=== PATIENT | male | born 1975 | race Caucasian/White ===

== ENCOUNTER 2021-01-31 19:54 | Emergency (ER) | payer OTHER ==
[2021-01-31] MEDS ORDERED: Morphine 4 MG/ML VIAL IVPUSH ONE (20:47)
[2021-01-31] MEDS ORDERED: HYDROmorphone 1 MG/ML Syringe IVPUSH STA ×2 (21:05→22:26)
[2021-01-31 21:23] LABS: BLOOD UREA NITROGEN,BUN 17 mg/dL (7.0-18.0); CARBON DIOXIDE,CO2 24.5 mmol/L (21.0-32.0); CHLORIDE,CL 104 mmol/L (98-107); GLUCOSE RANDOM 110 mg/dL (74-106); POTASSIUM,K 3.9 mmol/L (3.5-5.1); SODIUM,NA 140 mmol/L (136-148)
[2021-01-31] MEDS ORDERED: Iopamidol 755 MG/ML 500 ML Multipack Bottle IVPUSH STA (21:56)
--- NOTE | 2021-01-31 22:40 | CT ---
INDICATION: Evaluate for arterial occlusion. Swelling and pain of the left lower extremity. History of clots. Pain. COMPARISON: None available TECHNIQUE: CT angiography of the left pelvis and the left lower extremity was performed with the uneventful intravenous administration of 120 cc of Isovue 370 while spiral acquisition was performed from the superior iliac crest through the foot. 3 in 10 mm thick axial and 2 mm thick sagittal and coronal sections are obtained. Please note that all CT scans at this facility use dose modulation, iterative reconstruction, and/or weight-based dosing when appropriate to reduce radiation dose to as low as reasonably achievable. FINDINGS: : In the visualized left pelvis, the loops of small bowel and colon in are normal in appearance. The prostate is prominently enlarged and is otherwise normal in appearance. The urinary bladder is normal in appearance. There is no sign of pelvic or inguinal mass or adenopathy. There is no sign of free fluid or free air in the pelvis. The osseous structures are normal in appearance for the patient`s age. The visualized distal abdominal aorta is widely patent there is mild calcific plaque in the common iliac arteries bilaterally with no stenosis. The left external iliac and femoral arteries are widely patent. The left superficial femoral and profunda femoris are widely patent to the knee. 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 There is no sign of extravasation of contrast to suggest a bleed. There is no sign of hematoma around the aneurysm. The popliteal artery itself is widely patent. There is minimal calcification of the tibial-peroneal trunk, with no stenosis. There is excellent triple vessel runoff to the ankle, with the anterior and posterior tibial arteries both crossing the ankle. IMPRESSION: Widely patent arterial supply through the left lower extremity, with no sign of any stenosis or occlusion. Excellent triple vessel runoff to the ankle. 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 Please note that all CT scans at this facility use dose modulation, iterative reconstruction, and/or weight-based dosing when appropriate to reduce radiation dose to as low as reasonably achievable. Dictated by Vasyl Dowell MD @ 01/31/2021 10:39:01 PM (Electronically Signed)
[2021-02-01] MEDS ORDERED: fentaNYL 50 MCG/ML SDV IVPUSH ONE (00:05)
[2021-02-01] MEDS ORDERED: Enoxaparin 150 MG/1 ML Syringe SUBCUT ONE (00:06)
--- NOTE | 2021-02-01 00:52 | EDM.PDOC ---
ED HPI GENERAL MEDICAL PROBLEM - General Chief Complaint: Lower Extremity Injury/Pain Stated Complaint: POSSIBLE BLOOD CLOT IN LT KNEE Time Seen by Provider: 01/31/21 20:10 - History of Present Illness INITIAL COMMENTS - FREE TEXT/NARRATIVE: CHIEF COMPLAINT(S): "Left leg." HISTORY OF PRESENT ILLNESS: This is a 45-year-old and with a past medical history of reported clots in leg status post surgical intervention remotely who is supposed to be on warfarin who comes to the emergency department with a chief complaint of "left leg." The patient states that he is experiencing pain in his left leg. He rates his pain is 8-9 out of 10 and describes it as throbbing. He states that he cannot feel hot or cold in his left foot and is concerned that he may have a clot in that leg. He states that he has had some increased swelling and pain in that leg. This all began a couple of days ago. There is no radiation of the pain. The pain is not as exacerbated by moving it. There are no relieving factors. He states that he is supposed to be on warfarin however just moved here from [place] and has been unable to obtain his warfarin up until 2 days ago. He states that he is recently restarted the warfarin as described by his physician. He denies any other symptoms. REVIEW OF SYSTEMS: Constitutional: Denies fever, chills. Eyes: Denies eye pain Ears, Nose, Mouth, & Throat: Denies earache Cardiovascular: Denies chest pain Respiratory: Denies shortness of breath Gastrointestinal: Denies Nausea, vomiting, diarrhea, hematochezia. Genitourinary: Denies hematuria Skin:Denies a rash MSK: Positive for left leg pain and swelling Neurological: Positive for decreased sensation of hot and cold in left foot. Denies weakness Psychiatric: Denies depression PAST MEDICAL HISTORY: As per history of present illness and as reviewed below otherwise noncontributory. SURGICAL HISTORY: As per history of present illness and as reviewed below otherwise noncontributory. SOCIAL HISTORY: As per history of present illness and as reviewed below otherwise noncontributory. FAMILY HISTORY: As per history of present illness and as reviewed below otherwise noncontributory. EXAMINATION OF ORGAN SYSTEMS/BODY AREAS: Constitutional: Blood pressure was 139/81, heart rate 89, respiratory rate 16 with an oxygen saturation of 95% on room air. Temperature 35.9 General: obese gentleman who does not appear to be in acute distress Psychiatric: Appropriate mood and affect. Eyes: No scleral icterus or conjunctival erythema ENMT: Moist mucous membranes. No pharyngeal erythema Cardiovascular: Regular, rate, and rhythm. No gallops, murmurs, or rubs. Bilateral upper extremity pulses symmetric and intact. Left lower extremity does appear to be more swollen than the right. There is no evidence of any pitting edema. No JVD. Bilateral DP and PT pulses are symmetric and intact. Capillary refill of distal lower extremities is less than 1 second. Respiratory: Lungs clear to auscultation bilaterally. No wheezes, rales, or rhonchi. Gastrointestinal: Soft, non-tender, non-distended. Normoactive bowel sounds Genitourinary: No suprapubic tenderness Musculoskeletal: Normal range of motion. Skin: Chronic skin changes of his lower extremities likely secondary to peripheral vascular disease. Neurological: Alert, GCS 15 distal sensation is intact MEDICAL DECISION MAKING AND COURSE IN THE ED WITH INTERPRETATION/REVIEW OF DIAGNOSTIC STUDIES: This is a 45-year-old man with a past medical history of clots in his lower extremities who has missed 2 weeks of warfarin dosing who comes to the emergency department with left lower extremity swelling, pain with some asymmetry of left greater than right lower extremity swelling. At this time DVT is on the differential however given his history I am also concerned about the possibility of arterial injury. Obtain a CT of the lower extremity to evaluate for arterial occlusion. The patient does have DP pulses at this time. We will provide the patient with 0.5 mg of Dilaudid for pain relief. Given the patient is on warfarin we will obtain screening labs and an INR. It is the evening during my evaluation and there is no emergent senior electronics technician available to obtain a duplex ultrasonography therefore I will perform a bedside ultrasound to evaluate for deep venous thrombosis. I did discuss that the patient will need a formal duplex and that we could write him a prescription for that. He was amenable to this plan. DDx: DVT, arterial occlusion Laboratory: CBC is unremarkable except for thrombocytopenia with a platelet count of 135. INR is subtherapeutic at 1.7. BMP is unremarkable. The radiological images were viewed by myself along with reading the report from the radiologist. CTA of the left lower extremity reveals no evidence of arterial occlusion. There is widely patent arterial supply through the left lower extremity with no signs of stenosis. Excellent triple-vessel runoff to the ankle. There is a 2.1 cm diameter aneurysm of the inferior superficial femoral artery just above the knee joint with peripheral thrombus. After CTA of the lower extremity I did discuss with patient that I would like to speak to a vascular surgeon. I did perform a bedside ultrasound at this time to evaluate for DVT. A bedside ultrasound was conducted to assess for DVT with clinical indications of edema and pain. The extremity was assessed at 3 locations - common femoral vein, saphenofemoral junction, and the popliteal vein. Sequential compressions at these sites showed a noncompressible popliteal vein, saphenofemoral junction. There did not appear to be any proximal femoral DVT interpretation: Positive for DVT. Given the patient is subtherapeutic with his warfarin we will provide the patient with subcutaneous Lovenox as the patient has had started his higher doses of warfarin and I expected to rise. I did discuss with him that he need to follow-up for INR repeating. I contacted [facility] in [place] and spoke with Dr. Jordan vascular surgeon who recommended outpatient evaluation as the patient will likely need surgical repair of the aneurysm. She states that the patient did not need to be transferred at this time. At this time I did discuss strict return precautions with the patient. He is to obtain an outpatient duplex ultrasonography to evaluate for the extent of the DVT. He was amenable discharge and had no further questions DISPOSITION: The patient was discharged home in stable condition. The patient will follow up with primary care physician and vascular surgery within 3 to 5 days CONDITION: Fair PROCEDURES: Bedside DVT ultrasound FINAL IMPRESSION(S)/DIAGNOSES: 1. Acute left lower extremity DVT 2. 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 Left Posterior Knee Pain Score (Numeric/FACES): 8 - Related Data Allergies Allergy/AdvReac Type Severity Reaction Status Date / Time Penicillins Allergy Anaphylactic Verified 01/31/21 20:05 Shock carbonation Allergy Anaphylactic Uncoded 01/31/21 20:05 Shock Home Meds: Home Meds Aspirin 81 mg PO 01/31/21 [History] Warfarin [Coumadin] 10 mg PO ASDIRECTED 01/31/21 [History] Hydrocodone/Acetaminophen [HYDROcodone-Acetaminophen 5-325 MG] 1 each PO Q6H PRN #12 tab 12/22/21 [Rx] Past Medical History Cardiovascular History: Reports: Blood Clots/VTE/DVT Respiratory History: Reports: None Gastrointestinal History: Reports: None Genitourinary History: Reports: None Musculoskeletal History: Reports: None Neurological History: Reports: None Psychiatric History: Reports: None Endocrine/Metabolic History: Reports: None Hematologic History: Reports: None Immunologic History: Reports: None Oncologic (Cancer) History: Reports: None Dermatologic History: Reports: None - Past Surgical History Head Surgeries/Procedures: Reports: None Social & Family History - Family History Family Medical History: No Pertinent Family History - Recreational Drug Use Recreational Drug Type: Reports: Marijuana/Hashish Review of Systems - Review of Systems Review Of Systems: See Below ED EXAM, GENERAL - Physical Exam Exam: See Below Course - Vital Signs Last Recorded V/S: Last Vital Signs Temp 35.9 C L 01/31/21 20:06 Pulse 76 02/01/21 00:54 Resp 16 02/01/21 00:54 BP 128/74 02/01/21 00:54 Pulse Ox 94 L 02/01/21 00:54 - Orders/Labs/Meds Labs: Laboratory Tests 01/31/21 01/31/21 01/31/21 Range/Units 20:55 20:55 20:55 WBC 8.55 (4.0-11.0) K/uL RBC 4.64 (4.50-5.90) M/uL Hgb 16.2 (13.0-17.0) g/dL Hct 44.6 (38.0-50.0) % MCV 96.1 (80.0-98.0) fL MCH 34.9 H (27.0-32.0) pg MCHC 36.3 (31.0-37.0) g/dL RDW Std Deviation 50.6 (28.0-62.0) fl RDW Coeff of [place] 14 (11.0-15.0) % Plt Count 135 L (150-400) K/uL MPV 9.30 (7.40-12.00) fL Neut % (Auto) 60.6 (48.0-80.0) % Lymph % (Auto) 28.0 (16.0-40.0) % [place] % (Auto) 8.7 (0.0-15.0) % Eos % (Auto) 2.5 (0.0-7.0) % Baso % (Auto) 0.2 (0.0-1.5) % Neut # (Auto) 5.2 (1.4-5.7) K/uL Lymph # (Auto) 2.4 (0.6-2.4) K/uL [place] # (Auto) 0.7 (0.0-0.8) K/uL Eos # (Auto) 0.2 (0.0-0.7) K/uL Baso # (Auto) 0.0 (0.0-0.1) K/uL Nucleated RBC % 0.0 /100WBC Nucleated RBCs # 0 K/uL INR 1.70 Sodium 140 (136-148) mmol/L Potassium 3.9 (3.5-5.1) mmol/L Chloride 104 (98-107) mmol/L Carbon Dioxide 24.5 (21.0-32.0) mmol/L BUN 17 (7.0-18.0) mg/dL Creatinine 0.9 (0.8-1.3) mg/dL Est Cr Clr Drug Dosing 130.63 mL/min Estimated GFR (MDRD) > 60.0 ml/min Glucose 110 H (74-106) mg/dL Calcium 9.1 (8.5-10.1) mg/dL Meds: Medications Discontinued Medications Generic Name Dose Route Start Last Admin Trade Name Freq PRN Reason Stop Dose Admin Enoxaparin Sodium 150 mg 02/01/21 00:06 02/01/21 00:16 Enoxaparin 150 Mg/1 Ml Syringe SUBCUT 02/01/21 00:07 150 mg ONETIME ONE Administration Fentanyl 25 mcg 02/01/21 00:05 02/01/21 00:16 Fentanyl 50 Mcg/Ml Sdv IVPUSH 02/01/21 00:06 25 mcg ONETIME ONE Administration Hydromorphone HCl 0.5 mg 01/31/21 21:05 01/31/21 21:09 Hydromorphone 1 Mg/Ml Syringe IVPUSH 01/31/21 21:06 0.5 mg STAT STA Administration Hydromorphone HCl 0.5 mg 01/31/21 22:26 01/31/21 22:33 Hydromorphone 1 Mg/Ml Syringe IVPUSH 01/31/21 22:27 0.5 mg STAT STA Administration Iopamidol 120 ml 01/31/21 21:56 01/31/21 21:57 Iopamidol 755 Mg/Ml 500 Ml Multipack Bottle IVPUSH 01/31/21 21:57 120 ml ONETIME STA Administration Morphine Sulfate 4 mg 01/31/21 20:47 01/31/21 21:04 Morphine 4 Mg/Ml Vial IVPUSH 01/31/21 20:48 Not Given ONETIME ONE Departure - Departure Time of Disposition: 00:45 Disposition: Home, Self-Care 01 Condition: Fair Clinical Impression: DVT (deep venous thrombosis), Aneurysm artery, popliteal - Discharge Information *PRESCRIPTION DRUG MONITORING PROGRAM REVIEWED*: No *COPY OF PRESCRIPTION DRUG MONITORING REPORT IN PATIENT MOHINDER: No Prescriptions: Hydrocodone/Acetaminophen [HYDROcodone-Acetaminophen 5-325 MG] 1 each PO Q6H PRN #12 tab PRN Reason: Pain (Severe 7-10) Instructions: Warfarin Information, Deep Vein Thrombosis Referrals: PCP,None [Primary Care Provider] - Forms: ED Department Discharge Additional Instructions: You were evaluated today on an emergent basis. At this time your CT of the left lower extremity did show a 2.1 cm aneurysm on the back of your knee with a small clot. I did discuss this with vascular surgeon Dr. Jordan and she recommends that you follow-up with her for surgical repair. The number is below. In addition I did do a bedside ultrasound as there is no emergent ultrasound availability and there does appear to be a clot in your venous system of your left leg. We did provide you with Lovenox given that you are subtherapeutic with your warfarin. I recommend you continue with your warfarin dose as prescribed and described by your physician. If you have any worsening symptoms such as a cold, white, left leg I would like you to return to the emergency department. Otherwise follow-up with primary care physician within 3 to 5 days. In addition I did provide you with a prescription for a formal duplex ultrasound of your left leg to evaluate for the extent of the clot in your veins. [facility] [address] [place] [address] [id number] [address] [address] Vascular Surgery - Dr. Julian [place], [place] [phone] The patient is informed of any results of their evaluation and diagnostic workup and all questions are answered. They are given discharge instructions and return precautions. The patient is stable for discharge. The patient states they understand and agree with the plan and that they will return if their symptoms get worse or if they have any new concerns. The following information is given to patients seen in the emergency department who are being discharged to home. This information is to outline your options for follow-up care. We provide all patients seen in our emergency department with a follow-up referral. The need for follow-up, as well as the timing and circumstances, are variable depending upon the specifics of your emergency department visit. If you don't have a primary care physician on staff, we will provide you with a referral. We always advise you to contact your personal physician following an emergency department visit to inform them of the circumstance of the visit and for follow-up with them and/or the need for any referrals to a consulting specialist. The emergency department will also refer you to a specialist when appropriate. This referral assures that you have the opportunity for follow-up care with a specialist. All of these measure are taken in an effort to provide you with optimal care, which includes your follow-up. Under all circumstances we always encourage you to contact your private physician who remains a resource for coordinating your care. When calling for fo llow-up care, please make the office aware that this follow-up is from your recent emergency room visit. If for any reason you are refused follow-up, please contact the [facility] Emergency Department at and asked to speak to the emergency department charge nurse. Sepsis Event Note (ED) - Evaluation Sepsis Screening Result: No Definite Risk - Focused Exam Vital Signs: Vital Signs Temp Pulse Resp BP Pulse Ox 02/01/21 00:54 76 16 128/74 94 L 01/31/21 23:06 77 15 104/50 L 96 01/31/21 22:06 78 15 112/52 L 94 L 01/31/21 21:06 86 16 131/63 94 L 01/31/21 20:06 35.9 C L 89 16 139/81 95
== END 2021-02-01 01:05 | disposition home or self-care (01) ==
LOC: MW.ED 19:54
DX: I82.432 Acute embolism and thrombosis of left popliteal vein (principal); I72.4 Aneurysm of artery of lower extremity; Z88.0 Allergy status to penicillin; Z91.048 Other nonmedicinal substance allergy status; Z79.82 Long term (current) use of aspirin; Z79.01 Long term (current) use of anticoagulants
CPT/HCPCS: 36415; 73706; 80048; 85025; 85610; 96372; 96374; 96375; 96376; 99284; J1170; J1650; J3010; Q9967

== ENCOUNTER 2021-11-18 08:00 | Emergency (ER) | payer OTHER | END 2021-11-18 18:24 | disposition home or self-care (01) | LOC: MW.ED 08:00 | DX: S91.302A Unspecified open wound, left foot, initial encounter (principal); R07.9 Chest pain, unspecified; W45.8XXA Other foreign body or object entering through skin, initial encounter | CPT/HCPCS: 93010; 99284; 99285 ==

== ENCOUNTER 2021-12-17 20:59 | Emergency (ER) | payer OTHER ==
[2021-12-17] MEDS ORDERED: Bacitracin Oint 1 GM U/D Packet TOP ONE (22:05)
[2021-12-17] MEDS ORDERED: Sulfamethoxazole/Trimethoprim 800-160 MG Tab PO ONE (22:05)
== END 2021-12-17 22:39 | disposition home or self-care (01) ==
LOC: MW.ED 20:59
DX: L03.116 Cellulitis of left lower limb (principal); Z88.0 Allergy status to penicillin; Z79.82 Long term (current) use of aspirin; Z79.899 Other long term (current) drug therapy
CPT/HCPCS: 99283; A9270